=== PATIENT | male | born 1980 | race Caucasian/White ===

== ENCOUNTER → 2018-02-11 | Outpatient (CLI) | payer OTHER ==
--- NOTE | 2018-02-11 23:07 | MR ---
EXAMINATION TYPE: MR knee RT wo con DATE OF EXAM: 02/11/2018 COMPARISON: Plain film 01/23/2018 HISTORY: Pain in right knee TECHNIQUE: Multiplanar, multisequence imaging of the right knee is performed without IV contrast. FINDINGS: MEDIAL MENISCUS: Anterior and posterior horns are intact without tear. LATERAL MENISCUS: There is some linear increased signal within the posterior horn of the lateral meni scus extending to the articular surface on sagittal image 21 of the T1 data set towards the root sugg esting longitudinal tear of the posterior horn lateral meniscus at the insertion of the meniscofemora l ligament, some more diffuse increased signal is present within the posterior horn as well as anteri or horn. CRUCIATE LIGAMENTS: There is suggestion of double posterior cruciate ligament sign or possibly fragme nt in notch sign. Difficult to exclude a tear the posterior cruciate ligament. The anterior cruciate ligament is intact. COLLATERAL LIGAMENTS: Plain film shows Az-Stieda disease finding suggesting old medial collat eral ligament tear not appreciated and MRI, popliteus tendon shows some increased signal suggesting s ome tendinosis, lateral collateral ligament tear is noted. EXTENSOR MECHANISM: Visualized quadriceps and patellar tendons are intact. EFFUSION: There is a small joint effusion. POPLITEAL CYST: Small semimembranosus gastrocnemius cyst present. TRICOMPARTMENT SPACES: CARTILAGE: BONE MARROW SIGNAL: No focal abnormal marrow signal is appreciated. OTHER: There is a para meniscal cyst at the anterior root of the lateral meniscus measuring only 5 m m. IMPRESSION: Lateral collateral ligament tear. Tear of the posterior horn of the lateral meniscus as described. Fi ndings at the posterior cruciate ligament are unusual, difficult to state with certainty, there may b e posterior cruciate ligament tear.
== END | disposition home or self-care (01) ==
LOC: RADMRIMAIN 17:29
PROVIDERS: ATTEND Orthopaedic Surgery
DX: S83.421A Sprain of lateral collateral ligament of right knee, initial encounter (principal); S83.281A Other tear of lateral meniscus, current injury, right knee, initial encounter

== ENCOUNTER → 2018-03-05 | Outpatient (CLI) | payer OTHER ==
[2018-03-05 15:36] LABS: Basophils % (A) 0 %; Eosinophils # (A) 0.1 k/uL (0-0.7); Eosinophils % (A) 2 %; HGB 15.1 gm/dL (13.0-17.5); Lymphocytes # (A) 1.8 k/uL (1.0-4.8); Lymphocytes % (A) 35 %; MCV 85.6 fL (80.0-100.0); Mean Platelet Volume 7.1; Monocytes # (A) 0.3 k/uL (0-1.0); Monocytes % (A) 6 %; Neutrophils # (A) 2.8 k/uL (1.3-7.7); Neutrophils % (A) 55 %; Platelet Count 194 k/uL (150-450); RBC 5.02 m/uL (4.30-5.90); RDW 12.6 % (11.5-15.5); WBC 5.1 k/uL (3.8-10.6)
[2018-03-05 15:50] LABS: Potassium 4.1 mmol/L (3.5-5.1)
== END | disposition home or self-care (01) ==
LOC: LABPAT 14:37
PROVIDERS: ATTEND Orthopaedic Surgery
DX: Z01.812 Encounter for preprocedural laboratory examination (principal); M23.91 Unspecified internal derangement of right knee; I10 Essential (primary) hypertension
CPT/HCPCS: 36415; 80051; 85025

== ENCOUNTER 2018-03-13 09:05 | Day surgery (SDC) | payer OTHER ==
[2018-03-12 08:46] VITALS: BMI 41.7
--- NOTE | 2018-03-12 09:58 | HP ---
HISTORY AND PHYSICAL CHIEF COMPLAINT: Right knee pain. 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 He notes diffuse pain along with giving way. He has been taking pain medications for this. He notes it does significantly limit him. PAST MEDICAL HISTORY: Significant for reflux disease and hypertension. PAST SURGICAL HISTORY: Negative. CURRENT MEDICATIONS: Lisinopril and omeprazole. FAMILY HISTORY: Negative. SOCIAL HISTORY: Negative for current tobacco or alcohol use. REVIEW OF SYSTEMS: Sixteen-point review of systems otherwise reviewed and is noncontributory. PHYSICAL EXAMINATION: On examination, the patient is approximately 6 feet 2 inches, 325 pounds of endomorphic habitus. HEENT exam is nonfocal. Neck is supple. He has painless passive motion of the right hip. Straight leg raise is negative. Active motion right knee -6 to 115 degrees of flexion. He has a mild effusion. He is tender about the lateral joint line. Collaterals are stable, Roberto's negative, Navjot's elicits lateral pain. He does have moderate guarding. His distal neurovascular exam appears intact in the right lower extremity. MRI report right knee 02/11/2018 shows an old lateral collateral ligament sprain along with a lateral meniscal tear. IMPRESSION: 1. Right knee internal derangement with symptomatic lateral meniscal tear. 2. Increased body mass index. RECOMMENDATIONS: I talked to the patient at length regarding his condition and treatment options. He is having significant pain and mechanical symptoms that limit him. He opts to proceed with surgery. We will plan to proceed with arthroscopic evaluation with possible partial lateral meniscectomy. We will likely perform that as an outpatient procedure. Risks and benefits were discussed at length in layman's terms. MMODL / IJN: [id number] /
[~2018-03-13 09:05] MED LIST: HYDROmorphone 0.5 MG/0.5 ML SYRINGE IVP PRN; LACTATED RINGERS 1,000 ML IV SCH; LIDOCAINE 1% 20 ML VIAL (10MG/ML) FOR IV START INTRADERMA PRN; ONDANSETRON 4 MG/2 ML VIAL IVP ONE
[2018-03-13] MEDS ORDERED: PROPOFOL 10 MG/ML 20 ML VIAL IV ONE (10:45)
[2018-03-13] MEDS ORDERED: fentaNYL (PF) 50 MCG/ML 2 ML AMP ONE (10:45)
[2018-03-13] MEDS ORDERED: KETOROLAC 30 MG/ML 1 ML VIAL ONE (10:45)
[2018-03-13] MEDS ORDERED: SUCCINYLCHOLINE CHLORIDE VIAL 200 MG/10 ML VIAL IV ONE (10:45)
[2018-03-13] MEDS ORDERED: HYDROmorphone (PF) 1 MG/ML ONE (10:45)
[2018-03-13] MEDS ORDERED: MIDAZOLAM 2 MG/2 ML VIAL ONE (10:45)
[2018-03-13] MEDS ORDERED: LIDOCAINE 1% INJ 10MG/ML (20 ML MDV) ONE (10:45)
[2018-03-13 11:31] VITALS: TEMP 97.4
--- NOTE | 2018-03-13 11:32 | P.OP ---
Date of Procedure: 03/13/18 Preoperative Diagnosis: Right knee internal derangement Postoperative Diagnosis: Right knee posterior lateral meniscal tear/grade 2 chondral injury medial patellar facet/reactive synovitis of the medial, lateral, and patellofemoral compartments. Procedure(s) Performed: Right knee arthroscopic partial lateral meniscectomy/patellar chondroplasty/ partial synovectomy of the medial, lateral, and patellofemoral compartments. Anesthesia: GETA Surgeon: Guido Husain Estimated Blood Loss (ml): 10 Pathology: none sent Condition: stable Disposition: PACU Indications for Procedure: The patient is a 37-year-old male who presents with progressive right knee pain and mechanical symptoms despite conservative measures. A discussion of the risks and benefits of operative intervention versus continued conservative measures was made with the patient. He opted to proceed with surgery. Operative risks to include infection, neurovascular injury, development of blood clots, possible incomplete resolution of symptoms, possible worsening symptoms and need for subsequent procedures was discussed. Informed consent was obtained. Operative Findings: As below Description of Procedure: The patient was brought to the operating room, and after induction of general anesthesia examined the right knee. Collaterals were stable, Roberto was negative, and posterior drawer was negative. The right lower extremity was prepped and draped in normal fashion. A superior lateral portal was made through a 3 mm skin incision superior and lateral to the patella. This was used for outflow. A lateral portal was made through a 5 mm vertical skin incision lateral to the patella tendon above the joint. Diagnostic arthroscopy was performed. A medial portal was made through a similar incision medial to the patella tendon above the joint line. On inspection of the medial compartment, the medial meniscus was stable and intact. There was no significant degenerative changes. On inspection of the notch, the anterior cruciate ligament appeared intact. On inspection of the lateral compartment, there was an oblique tear involving the posterior aspect of the lateral meniscus in the white-white junction. This was debrided back to stable base with straight baskets and a motorized shaver. The edges were contoured. The remaining lateral meniscus was stable and intact. Reactive synovitis involving the anterior medial, anterolateral, and patellofemoral articulation was debrided with a motorized shaver. On inspection patellofemoral articulation, a grade 2 chondral injury involving the medial patella facet was noted with a loose chondral fragment. This was debrided back to stable base with a motorized shaver. The gutters were clear debris. The knee was then thoroughly irrigated. The portals were closed with Steri-Strips. A sterile dressing was applied in addition to a compression stocking. The patient was awoken from general anesthesia and transferred to recovery room in good condition. Blood loss was estimated at 10 mL. No complications were incurred.
[2018-03-13 12:37] VITALS: RESP 18
[2018-03-13 12:56] VITALS: BP 133/81; PULSE 76
== END 2018-03-13 13:41 | disposition home or self-care (01) ==
LOC: OR 09:05
PROVIDERS: ATTEND Orthopaedic Surgery
DX: M23.300 Other meniscus derangements, unspecified lateral meniscus, right knee (principal); M65.861 Other synovitis and tenosynovitis, right lower leg; M23.41 Loose body in knee, right knee; E66.01 Morbid (severe) obesity due to excess calories; I10 Essential (primary) hypertension; K21.9 Gastro-esophageal reflux disease without esophagitis; Z79.891 Long term (current) use of opiate analgesic; Z79.899 Other long term (current) drug therapy; Z68.41 Body mass index [BMI] 40.0-44.9, adult
CPT/HCPCS: 29881; J2250; J0330; J0690; J2405; J2001; J3010; J1885; J1170; J2704

== ENCOUNTER 2024-11-26 11:30 | Emergency (ER) | payer OTHER ==
[2024-11-26 11:42] VITALS: RESP 20; TEMP 98.3
--- NOTE | 2024-11-26 12:25 | XR ---
EXAMINATION TYPE: XR hand complete LT DATE OF EXAM: 11/26/2024 11:56 AM COMPARISON: 01/16/2015 CLINICAL INDICATION: Male, 44 years old with history of Injury, pain TECHNIQUE: 3 view(s) obtained. FINDINGS: Soft tissue swelling is over the ring finger. Osseous structures are intact. No acute fracture or dislocation evident. Old fracture of the mid diap hyseal fourth metacarpal is present. Old distal fourth tuft ring finger fracture is evident. Joint sp aces are preserved. Follow-up exams can be performed 7-10 days from acute trauma for continued pain. IMPRESSION: 1. No acute osseous abnormality. 2. Soft tissue swelling ring finger. [facility], , 11/26/2024 12:22 PM
--- NOTE | 2024-11-26 12:38 | ED ---
General Adult HPI - General Chief complaint: Extremity Injury, Upper Stated complaint: L-Ring Finger Injury Time Seen by Provider: 11/26/24 11:42 Source: patient, RN notes reviewed Mode of arrival: ambulatory Limitations: no limitations - History of Present Illness Initial comments: 44-year-old male presents to the emergency department with complaints of left hand fifth digit pain and swelling. Patient states that last Friday he was on a friend's boat moving an anchor when part of the rope wrapped around his hand. He states that the 4 digits on his hand, excluding his thumb, are red and irritated over the past week however the pain is resolved except for the fourth digit. Patient denies pain with range of motion of the finger, fevers, chills, redness streaking up his hand, difficulty with moving his wrist. Denies use antibiotic use. - Related Data Home Medications Medication Instructions Recorded Confirmed HYDROcodone/APAP 7.5-325MG [Hamilton 1 tab PO TID PRN 03/12/18 03/13/18 7.5-325] L.acidoph,Paracasei, B.lactis 1 each PO DAILY 03/12/18 03/13/18 [Probiotic] Losartan Potassium 100 mg PO DAILY 03/12/18 03/13/18 Omeprazole [PriLOSEC] 20 mg PO BID 03/12/18 03/13/18 Previous Rx's Medication Instructions Recorded Cephalexin [Keflex] 500 mg PO Q6HR #40 cap 11/26/24 Sulfamethox-Tmp 800-160Mg [Bactrim 1 each PO Q12HR #20 tab 11/26/24 Ds] Allergies Allergy/AdvReac Type Severity Reaction Status Date / Time No Known Allergies Allergy Verified 11/26/24 11:42 Review of Systems ROS Statement: Those systems with pertinent positive or pertinent negative responses have been documented in the HPI. ROS Other: All systems not noted in ROS Statement are negative. Past Medical History Past Medical History: GERD/Reflux, Hypertension Additional Past Medical History / Comment(s): IBS History of Any Multi-Drug Resistant Organisms: None Reported Past Surgical History: No Surgical Hx Reported Past Psychological History: No Psychological Hx Reported Smoking Status: Never smoker Past Alcohol Use History: None Reported Past Drug Use History: Marijuana General Exam Limitations: no limitations General appearance: alert, in no apparent distress Neck exam: Present: normal inspection. Absent: tenderness, meningismus, lymphadenopathy Respiratory exam: Present: normal lung sounds bilaterally. Absent: respiratory distress, wheezes, rales, rhonchi, stridor Cardiovascular Exam: Present: regular rate, normal rhythm, normal heart sounds. Absent: systolic murmur, diastolic murmur, rubs, gallop, clicks GI/Abdominal exam: Present: soft, normal bowel sounds. Absent: distended, tenderness, guarding, rebound, rigid Left Hand Wrist exam: Present: tenderness (4th digit), swelling Neuro motor exam: Present: wrist extension intact, thumb opposition intact Vascular: Present: normal capillary refill, radial pulse (2+). Absent: vascular compromise Back exam: Present: normal inspection Skin exam: Present: warm, dry, intact, normal color. Absent: rash Course Vital Signs 11/26/24 11/26/24 11:39 13:07 Temperature 98.3 F Pulse Rate 84 78 Respiratory 20 20 Rate Blood Pressure 129/79 124/79 O2 Sat by Pulse 97 97 Oximetry Medical Decision Making - Medical Decision Making Was pt. sent in by a medical professional or institution (Dr. PA, [facility], urgent care, hospital, or usp...) When possible be specific @ -No Did you speak to anyone other than the patient for history (EMS, parent, family, police, friend...)? What history was obtained from this source @ -No Did you review nursing and triage notes (agree or disagree)? Why? @ -I reviewed and agree with nursing and triage notes Were old charts reviewed (outside hosp., previous admission, EMS record, old EKG, old radiological studies, urgent care reports/EKG's, usp records)? Report findings @ -No old charts were reviewed Differential Diagnosis (chest pain, altered mental status, abdominal pain women, abdominal pain men, vaginal bleeding, weakness, fever, dyspnea, syncope, headache, dizziness, GI bleed, back pain, seizure, CVA, palpatations, mental health, musculoskeletal)? @ -Finger sprain, flexor tenosynovitis, cellulitis, this list is not all- inclusive EKG interpreted by me (3pts min.). @ -None X-rays interpreted by me (1pt min.). @ -X-ray of the left hand reveals soft tissue swelling of the fourth digit with no acute osseous abnormality CT interpreted by me (1pt min.). @ -None done U/S interpreted by me (1pt. min.). @ -None done What testing was considered but not performed or refused? (CT, X-rays, U/S, labs)? Why? @ -None What meds were considered but not given or refused? Why? @ -None Did you discuss the management of the patient with other professionals (professionals i.e. DrJeremy, PA, [facility], lab, RT, psych nurse, social security benefits interviewer, residency director, teacher, special forces officer, case supervisor)? Give summary @ -No Was smoking cessation discussed for >3mins.? @ -No Was critical care preformed (if so, how long)? @ -No Were there social determinants of health that impacted care today? How? (Homelessness, low income, unemployed, alcoholism, drug addiction, transportation, low edu. Level, literacy, decrease access to med. care, nursing home, rehab)? @ -No Was there de-escalation of care discussed even if they declined (Discuss DNR or withdrawal of care, Hospice)? DNR status @ -No What co-morbidities impacted this encounter? (DM, HTN, Smoking, COPD, CAD, Cancer, CVA, ARF, Chemo, Hep., AIDS, mental health diagnosis, sleep apnea, morbid obesity)? @ -None Was patient admitted / discharged? Hospital course, mention meds given and route, prescriptions, significant lab abnormalities, going to OR and other pertinent info. @ -Discharge. 44-year-old male presents emergency room with complaints of left fourth digit pain. HEP orders are placed where x-rays obtained. Evaluation of the patient's hand reveals erythema to the left digit most notable at the proximal base with a noted laceration consistent with cellulitis. Patient has full range of motion of the digit with no pain along the flexor tendon. Patient is provided with outpatient prescriptions for Keflex and Bactrim and return parameters discussed in regard to concern for potential flexor tenosynovitis. Patient has verbalized understanding. Recommend follow-up with primary care provider in 1 to 3 days. Case discussed with Dr. Moses Undiagnosed new problem with uncertain prognosis? @ -No Drug Therapy requiring intensive monitoring for toxicity (Heparin, Nitro, Insulin, Cardizem)? @ -No Were any procedures done? @ -No Diagnosis/symptom? @ -Finger cellulitis Acute, or Chronic, or Acute on Chronic? @ -Acute Uncomplicated (without systemic symptoms) or Complicated (systemic symptoms)? @ -Uncomplicated Side effects of treatment? @ -No Exacerbation, Progression, or Severe Exacerbation? @ -No Poses a threat to life or bodily function? How? (Chest pain, [place], SC, pneumonia, PE, COPD, DKA, ARF, appy, cholecystitis, CVA, Diverticulitis, Homicidal, Suicidal, threat to staff... and all critical care pts) @ -No Disposition Clinical Impression: Cellulitis, finger Disposition: HOME SELF-CARE Condition: Stable Instructions (If sedation given, give patient instructions): Cellulitis (ED) Additional Instructions: Please return to the Emergency Department if symptoms worsen or any other concerns. Prescriptions: Sulfamethox-Tmp 800-160Mg [Bactrim Ds] 1 each PO Q12HR #20 tab Cephalexin [Keflex] 500 mg PO Q6HR #40 cap Is patient prescribed a controlled substance at d/c from ED?: No Referrals: None,Stated [Primary Care Provider] - 1-2 days Time of Disposition: 12:59
[2024-11-26 13:08] VITALS: BP 124/79; PULSE 78
== END 2024-11-26 13:08 | disposition home or self-care (01) ==
LOC: EC 11:30
DX: L03.012 Cellulitis of left finger (principal); W49.02XA String or thread causing external constriction, initial encounter
CPT/HCPCS: 99283

== ENCOUNTER 2024-11-29 09:29 | Inpatient (IN) | payer OTHER ==
[2024-11-29] MEDS ORDERED: VANCOMYCIN IV PER PHARMACY 1 EACH MISC MISCELLANE PRN (09:49)
[2024-11-29 10:10] LABS: Basophils # (A) 0.01 10*3/uL (0.00-0.10); Basophils % (A) 0.2 %; Eosinophils # (A) 0.06 10*3/uL (0.04-0.35); Eosinophils % (A) 0.9 %; Lymphocytes # (A) 1.65 10*3/uL (0.90-5.00); Lymphocytes % (A) 24.9 %; MCH 31.3 pg (27.0-32.0); MCHC 35.3 g/dL (32.0-37.0); MCV 88.5 fL (80.0-97.0); Mean Platelet Volume 10.5 fL (9.5-12.2); Monocytes # (A) 0.55 10*3/uL (0.20-1.00); Monocytes % (A) 8.3 %; Neutrophils # (A) 4.34 10*3/uL (1.80-7.70); Neutrophils % (A) 65.5 %; Platelet Count 271 10*3/uL (140-440); RBC 5.76 10*6/uL (4.40-5.60); RDW 12.2 % (11.5-14.5); WBC 6.62 10*3/uL (4.50-10.00)
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
[2024-11-29 10:25] LABS: ALT 25 U/L (4-49); AST 26 U/L (17-59); African American GFR (CKD) >90 (>60 ml/min/1.73 sqM); Albumin 5.2 g/dL (3.5-5.0); Alkaline Phosphatase 88 U/L (38-126); Anion Gap 13 mmol/L; Blood Urea Nitrogen 16 mg/dL (9-20); Calcium 10.6 mg/dL (8.4-10.2); Carbon Dioxide 27 mmol/L (22-30); Chloride 101 mmol/L (98-107); Glucose 117 mg/dL (74-99); Non-African American GFR(CKD) 88 (>60 ml/min/1.73 sqM); Potassium 4.5 mmol/L (3.5-5.1); Sodium 141 mmol/L (137-145); Total Bilirubin 0.6 mg/dL (0.2-1.3); Total Protein 9.2 g/dL (6.3-8.2)
[2024-11-29] MEDS: MORPHINE SULFATE 4 MG/ML SYRINGE IVP STA (10:46)
[2024-11-29] MEDS: LACTATED RINGERS 1,000 ML IV SCH (10:46)
[2024-11-29] MEDS: ONDANSETRON 4 MG/2 ML VIAL IVP STA (10:47)
[2024-11-29] MEDS: KETOROLAC 15 MG/ML 1 ML VIAL IVP STA (10:47)
[2024-11-29] MEDS: LEVOFLOXACIN 750MG-D5W PMX 750 MG in DEXTROSE/WATER 1 150ML.BAG IVPB STA (10:50)
--- NOTE | 2024-11-29 10:57 | XR ---
EXAMINATION TYPE: XR chest 2V DATE OF EXAM: 11/29/2024 10:22 AM COMPARISON: None. CLINICAL INDICATION: Male, 44 years old with history of Cough, TECHNIQUE: XR chest 2V view(s) obtained. FINDINGS: The heart size is normal. The pulmonary vasculature is normal. The lungs are clear. IMPRESSION: 1. No acute pulmonary process. [facility], , 11/29/2024 10:55 AM
--- NOTE | 2024-11-29 11:00 | XR ---
EXAMINATION TYPE: XR finger LT DATE OF EXAM: 11/29/2024 10:22 AM COMPARISON: 11/26/2024 CLINICAL INDICATION: Male, 44 years old with history of Left ring finger infection, pain TECHNIQUE: 3 view(s) obtained. FINDINGS: Ring finger: No acute fracture or dislocation evident. Some old changes at the distal tuft may be pre sent along the dorsal aspect. Correlate with the recent history of injury. Cortical erosion is not id entified. Joint spaces are preserved. Diffuse soft tissue swelling is present. Old mid diaphyseal fif th fourth metacarpal fracture is evident. Follow up exams can be performed 7-10 days from acute trauma for continued pain. IMPRESSION: 1. Likely old posttraumatic changes at the distal dorsal tuft of the ring finger and within the four th metacarpal. 2. Diffuse soft tissue swelling greater in the proximal portion ring finger. 3. No underlying acute osseous abnormality identified. [facility], , 11/29/2024 10:57 AM
[2024-11-29 11:22] LABS: Influenza A Not Detected (Not Detectd); Influenza B Not Detected (Not Detectd); RSV Not Detected (Not Detectd)
[2024-11-29] MEDS: VANCOMYCIN 2,000 MG in SODIUM CHLORIDE 0.9% 500 ML 500 ML IVPB ONE (11:35)
[2024-11-29] MEDS ORDERED: ACETAMINOPHEN TAB 325 MG TAB PO PRN (11:46)
[2024-11-29] MEDS ORDERED: NALOXONE 0.4 MG/ML 1 ML VIAL IV PRN (11:46)
[2024-11-29] MEDS ORDERED: HYDROcodone/APAP 5-325MG 1 EACH TAB PO PRN (11:46)
[2024-11-29] MEDS: AMPICILLIN-SULBACTAM 1.5 GM in SODIUM CHLORIDE 0.9% 50 ML IVPB ONE (12:49)
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
[2024-11-29 16:39] LABS: Erythrocyte Sedimentation Rate 53 mm/Hr (0-15)
[2024-11-29] MEDS ORDERED: AMPICILLIN-SULBACTAM 1.5 GM in SODIUM CHLORIDE 0.9% 50 ML IVPB SCH (18:00)
[2024-11-29] MEDS: ONDANSETRON 4 MG/2 ML VIAL IVP PRN (21:20)
[2024-11-29] MEDS: KETOROLAC 15 MG/ML 1 ML VIAL IVP PRN (21:21)
[2024-11-29] MEDS: VANCOMYCIN 2,000 MG in SODIUM CHLORIDE 0.9% 500 ML 500 ML IVPB SCH (22:25)
[2024-11-30 03:51] LABS: African American GFR (CKD) >90 (>60 ml/min/1.73 sqM); Non-African American GFR(CKD) >90 (>60 ml/min/1.73 sqM)
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
[2024-11-30] MEDS: MORPHINE SULFATE 4 MG/ML SYRINGE IV PRN (07:03)
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
[2024-11-30] MEDS: ENOXAPARIN 40 MG/0.4 ML SYRINGE SQ SCH (09:51)
[2024-11-30] MEDS: PANTOPRAZOLE 40 MG/10 ML VIAL IV SCH (09:51)
[2024-11-30 10:17] LABS: HCT 44.1 % (39.6-50.0); HGB 14.7 g/dL (13.0-17.0); MCH 29.8 pg (27.0-32.0); MCHC 33.3 g/dL (32.0-37.0); MCV 89.3 FL (80.0-97.0); Mean Platelet Volume 11.5 FL (9.5-12.2); NRBC Per 100 WBC 0 X 10*3/uL (0.00-0.01); Platelet Count 221 X 10*3/uL (140-440); RBC 4.94 X 10*6/uL (4.40-5.60); WBC 5.61 X 10*3/uL (4.50-10.00)
[2024-11-30 10:31] LABS: BUN/Creat Ratio 14.33 Ratio (12.00-20.00); Blood Urea Nitrogen 12.9 mg/dL (9.0-27.0); Calcium 9.1 mg/dL (8.7-10.3); Carbon Dioxide 23.2 mmol/L (21.6-31.8); Chloride 107 mmol/L (96-109); Glucose 104 mg/dL (70-110); Sodium 141 mmol/L (135-145)
[2024-11-30] MEDS: VANCOMYCIN 2,000 MG in SODIUM CHLORIDE 0.9% 500 ML 500 ML IVPB SCH (10:56)
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
[2024-12-01 09:19] LABS: African American GFR (CKD) >90 (>60 ml/min/1.73 sqM); Non-African American GFR(CKD) >90 (>60 ml/min/1.73 sqM)
[2024-12-01] MEDS ORDERED: Potassium Replacement Protocol 1 EACH MISC MISCELLANE PRN (09:50)
[2024-12-01] MEDS: VANCOMYCIN TROUGH DUE 1 EACH MISC MISCELLANE ONE (10:24)
[2024-12-01] MEDS: POTASSIUM CHLORIDE ER 20 MEQ TAB.ER PO SCH (10:25)
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
[2024-12-01 15:00] VITALS: BP 149/85; PULSE 64; RESP 16; TEMP 97.1
[2024-12-01] MEDS ORDERED: VANCOMYCIN 1,750 MG in SODIUM CHLORIDE 0.9% 500 ML 500 ML IVPB SCH (21:00)
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
== END 2024-12-01 17:38 | disposition home or self-care (01) | DRG 383 ==
LOC: EC 09:29 → OBSVTOIN 13:24 → 6NMEDSUR 13:24 → 4SSUR 15:32
PROVIDERS: ADMIT Family Medicine; ATTEND Family Medicine
PROC: 05HC33Z Insertion of Infusion Device into Left Basilic Vein, Percutaneous Approach (ICD-10-PCS; principal; 2024-12-01 10:30)
DX: L03.012 Cellulitis of left finger (principal); S63.695A Other sprain of left ring finger, initial encounter; S66.115A Strain of flexor muscle, fascia and tendon of left ring finger at wrist and hand level, initial encounter; Y92.814 Boat as the place of occurrence of the external cause; I10 Essential (primary) hypertension; K21.9 Gastro-esophageal reflux disease without esophagitis; K58.9 Irritable bowel syndrome, unspecified; S61.215A Laceration without foreign body of left ring finger without damage to nail, initial encounter; X50.9XXA Other and unspecified overexertion or strenuous movements or postures, initial encounter
CPT/HCPCS: 36410; 36415; 71046; 76937; 80048; 80053; 80202; 82565; 83605; 85025; 85027; 85652; 86140; 87040; 87636; 96361; 96365; 96366; 96367; 96368; 96375; 99285

== ENCOUNTER 2025-01-12 08:37 | Emergency (ER) | payer OTHER ==
[2025-01-12] MEDS: KETOROLAC 15 MG/ML 1 ML VIAL IM STA (09:08)
--- NOTE | 2025-01-12 09:16 | XR ---
EXAMINATION TYPE: XR foot complete LT DATE OF EXAM: 01/12/2025 9:12 AM INDICATION: Patient age:Male; 44 years old; Reason for study: pain, hx of gout; PHH. pain COMPARISON: None TECHNIQUE: The left foot was examined in the AP, oblique, and lateral projections. FINDINGS: No evidence of any acute osseous pathology. No evidence of soft tissue swelling. Joints are preserve d. No osseous erosions. No radiopaque foreign body. IMPRESSION: No evidence of acute fracture. [facility], , 01/12/2025 9:14 AM
--- NOTE | 2025-01-12 09:24 | ED ---
General Adult HPI - General Chief complaint: Extremity Problem,Nontraumatic Stated complaint: L foot swelling Time Seen by Provider: 01/12/25 08:46 Source: patient, RN notes reviewed Mode of arrival: ambulatory Limitations: no limitations - History of Present Illness Initial comments: 44-year-old male presenting to the ER with complaints of left foot pain that started about 2 days ago. Patient states that he has a history of gout and this pain feels similar. He denies recent injuries to the foot. Denies fevers, chills, nausea, vomiting. States that he has not taken any medications to alleviate symptoms. - Related Data Previous Rx's Medication Instructions Recorded DAPTOmycin [Cubicin] See Rx Instructions .ROUTE 12/01/24 .COMPLEX #1 each Indomethacin [Indocin] 50 mg PO TID #30 capsule 01/12/25 Allergies Allergy/AdvReac Type Severity Reaction Status Date / Time No Known Allergies Allergy Verified 01/12/25 08:45 Review of Systems ROS Statement: Those systems with pertinent positive or pertinent negative responses have been documented in the HPI. ROS Other: All systems not noted in ROS Statement are negative. Past Medical History Past Medical History: GERD/Reflux, Hypertension Additional Past Medical History / Comment(s): IBS, Gout History of Any Multi-Drug Resistant Organisms: None Reported Past Surgical History: No Surgical Hx Reported Additional Past Surgical History / Comment(s): R meniscus repair 2015 Past Psychological History: No Psychological Hx Reported Smoking Status: Never smoker Past Alcohol Use History: None Reported Past Drug Use History: Marijuana General Exam Limitations: no limitations Neck exam: Present: normal inspection. Absent: tenderness, meningismus, lymphadenopathy Respiratory exam: Present: normal lung sounds bilaterally. Absent: respiratory distress, wheezes, rales, rhonchi, stridor Cardiovascular Exam: Present: regular rate, normal rhythm, normal heart sounds. Absent: systolic murmur, diastolic murmur, rubs, gallop, clicks GI/Abdominal exam: Present: soft, normal bowel sounds. Absent: distended, tenderness, guarding, rebound, rigid Left Foot/Toe exam: Present: full ROM, tenderness, swelling. Absent: abrasion, laceration, ecchymosis, deformity, erythema Neurovascular tendon exam: Present: no vascular compromise Back exam: Present: normal inspection Course Vital Signs 01/12/25 01/12/25 08:44 10:07 Temperature 98.5 F 98.0 F Pulse Rate 82 76 Respiratory 20 18 Rate Blood Pressure 143/91 152/82 O2 Sat by Pulse 99 97 Oximetry Medical Decision Making - Medical Decision Making Was pt. sent in by a medical professional or institution (, SUE, [employer] ENGINE MECHANIC, urgent care, hospital, or senior care...) When possible be specific @ -No Did you speak to anyone other than the patient for history (EMS, parent, family, police, friend...)? What history was obtained from this source @ -No Did you review nursing and triage notes (agree or disagree)? Why? @ -I reviewed and agree with nursing and triage notes Were old charts reviewed (outside hosp., previous admission, EMS record, old EKG, old radiological studies, urgent care reports/EKG's, senior care records)? Report findings @ -No old charts were reviewed Differential Diagnosis (chest pain, altered mental status, abdominal pain women, abdominal pain men, vaginal bleeding, weakness, fever, dyspnea, syncope, headache, dizziness, GI bleed, back pain, seizure, CVA, palpatations, mental health, musculoskeletal)? @ -Differential Musculoskeletal Muscular strain, contusion, ligament sprain, fracture, arthritis, septic arthritis, bursitis, cellulitis, muscle spasm, nerve compression, DVT, arterial occlusion, herpes zoster, electrolyte abnormality, tumor.... This is not meant to be in all inclusive list EKG interpreted by me (3pts min.). @ -none X-rays interpreted by me (1pt min.). @X-ray of the left foot reveals no acute osseous abnormality. CT interpreted by me (1pt min.). @ -None done U/S interpreted by me (1pt. min.). @ -None done What testing was considered but not performed or refused? (CT, X-rays, U/S, labs)? Why? @ -None What meds were considered but not given or refused? Why? @ -None Did you discuss the management of the patient with other professionals (professionals i.e. SUE Coker, AUTO ENGINE MECHANIC, lab, RT, psych nurse, social service assistant, lawyer probate, teacher, community cultural development officer, medical case manager)? Give summary @ -No Was smoking cessation discussed for >3mins.? @ -No Was critical care preformed (if so, how long)? @ -No Were there social determinants of health that impacted care today? How? (Homelessness, low income, unemployed, alcoholism, drug addiction, transportation, low edu. Level, literacy, decrease access to med. care, prison, rehab)? @ -No Was there de-escalation of care discussed even if they declined (Discuss DNR or withdrawal of care, Hospice)? DNR status @ -No What co-morbidities impacted this encounter? (DM, HTN, Smoking, COPD, CAD, Cancer, CVA, ARF, Chemo, Hep., AIDS, mental health diagnosis, sleep apnea, morbid obesity)? @ -None Was patient admitted / discharged? Hospital course, mention meds given and route, prescriptions, significant lab abnormalities, going to OR and other pertinent info. @ -Discharged. 44-year-old male presenting with complaints of left anterior foot pain. There is mild swelling over the left midfoot. Pedal pulses intact. He is provided with Toradol for pain relief. X-ray imaging is unremarkable. Patient provided with indomethacin with concern for gout flare instructed to not take this medication with other NSAIDs but is reasonable to take with acetaminophen. Recommend follow-up with primary care provider. Discussed with Dr. Rosado Undiagnosed new problem with uncertain prognosis? @ -No Drug Therapy requiring intensive monitoring for toxicity (Heparin, Nitro, Insulin, Cardizem)? @ -No Were any procedures done? @ -No Diagnosis/symptom? @ -left foot pain Acute, or Chronic, or Acute on Chronic? @ -acute Uncomplicated (without systemic symptoms) or Complicated (systemic symptoms)? @ -uncomplicated Side effects of treatment? @ -No Exacerbation, Progression, or Severe Exacerbation? @ -No Poses a threat to life or bodily function? How? (Chest pain, [place], [place], pneumonia, PE, COPD, DKA, ARF, appy, cholecystitis, CVA, Diverticulitis, Homicidal, Suicidal, threat to staff... and all critical care pts) @ -No Disposition Clinical Impression: Foot pain, left Disposition: HOME SELF-CARE Condition: Good Instructions (If sedation given, give patient instructions): Gout (ED) Additional Instructions: Please return to the Emergency Department if symptoms worsen or any other concerns. Please take prescribed medication as directed, do not take this medication with other NSAIDs such as Motrin/ibuprofen/Aleve or Advil. You may take this medication with Tylenol. Prescriptions: Indomethacin [Indocin] 50 mg PO TID #30 capsule Is patient prescribed a controlled substance at d/c from ED?: No Referrals: None,Stated [Primary Care Provider] - 1-2 days Time of Disposition: 09:43
[2025-01-12 10:08] VITALS: BP 152/82; PULSE 76; RESP 18; TEMP 98
== END 2025-01-12 10:08 | disposition home or self-care (01) ==
LOC: EC 08:37
DX: M79.672 Pain in left foot (principal)
CPT/HCPCS: 73630; 99283; 96372; J1885